=== PATIENT | male | born 1985 | race Caucasian/White ===

== ENCOUNTER 2024-05-10 09:03 | Outpatient (CLI) | payer OTHER, SELFPAY ==
--- NOTE | 2024-05-31 12:45 | WPDHOMESLEEP ---
Sleep Study - Home Unattended Date of Study: 05/10/24 Ordering Provider: Loni Molina, [employer] Interpreting Provider: Denise Sorensen, DO Home Sleep Study Type: Watch PAT Height: 1.78 m Weight: 113.398 kg Body Mass Index: 35.9 Neck Circumference (inches): 20.5 [place]: 4 Reason for Sleep Study Snoring Sleep History The patient is a 38-year-old male that had a sleep study ordered by his physician for evaluation of sleep apnea. The patient admits to snoring loudly, interruptions and breathing while asleep and trouble maintaining sleep. The patient admits to choking and gasping. The patient admits to having trouble breathing on they are back. He admits to morning headaches. He admits to having a dry or sore mouth/ throat in the morning. He denies nocturnal heartburn. He denies nocturia. The patient denies having trouble falling asleep. He denies having difficulty returning to sleep if he wakes up during the night. He denies hypnotic or sedative use. He denies feeling anxious about sleep. He denies sleep paralysis, cataplexy and hypnagogic / hypnopompic hallucinations. He admits to clenching or grinding his teeth. He denies having a restless feeling in his legs. He denies kicking or jerking his legs excessively. He does feel tired or fatigued during the day. He feels unrefreshed in the morning. He denies having urge to fall asleep during the day. He denies feeling drowsy while driving. He goes to bed at 9:00 p.m. on work days and at 11:00 p.m. on his days off. It takes him 15 minutes to fall asleep. He gets 7 hours of sleep on work days and 7 hours 45 minutes of sleep on the other days. His sleep is somewhat restorative on his days off. He denies taking any planned naps. He denies dream enactment behavior. He denies sleep walking. He consumes 1-2 cups of caffeinated beverage per day. He smokes less than 5 cigarettes per day. He has 2 glasses 7 alcoholic beverage 1-2 nights per week. He exercises 3-4 nights per week. Sleep Procedure The sleep study was completed using WatchPAT a technically adequate device with seven channels: peripheral arterial tone, actigraphy, body position, snore, respiratory movement, pulse oximetry, sleep staging, and heart rate. Prior to using the device, the patient received verbal and written instructions for its application and was provided with the help desk phone number for additional telephonic instruction with 24-hour availability of qualified personnel to answer questions. The study was scored using CMS guidelines. Sleep Architecture The total recording time is 7 hrs, 4 min. The total sleep time is 6 hrs, 12 min. Sleep latency is 19 minutes. REM latency is 81 minutes. The patient had 14 episodes of waking. Sleep architecture shows 10.4% deep sleep, 63.2% light sleep, and (as % Total Sleep Time) showed NREM (Light 63.2%; Deep 10.4%), and a 26.5% stage REM. The patient spent 65.3% of total sleep time in the supine position. Sleep efficiency was 87.74. Respiratory Analysis The overall AHI (pAHI 4%:) is 66.4. The central AHI is 3.7. The AHI was 66.1 in NREM and 67.1 in REM sleep. The AHI was 89.7 in Supine and 22.5 in Non-supine sleep. Percent of Roland Ling respirations is 0.0. Oximetry Data The oxygen desaturation index (ESTELA 4%:) is 64.4. The mean saturation is 94%, and the lowest saturation is 68%. Time spent with saturation < 88% is 12.0 minutes. Snoring Profile Snoring average intensity is 46 dB. The patient snored above 45 decibels for 190.2 minutes, 51.1% of sleep time. Cardiac Profile The average pulse rate is 71 beats per minutes. The lowest pulse rate is 55bpm. The highest pulse rate reported is 116 bpm. Atrial fibrillation was not detected. Premature beats occur <0.1 per minute. Assessment and Plan Assessment and Plan (1) RACHEL (obstructive sleep apnea): Code(s): G47.33 - Obstructive sleep apnea (adult) (pediatric) Status: Acute Assessment and Plan: The patient had an overall AHI of 66.4 with desaturation down to 68%. This is consistent with severe sleep apnea. I recommend that the patient have a CPAP Titration study with the use of a hypnotic to ensure we obtain enough sleep data and find an optimal pressure. Data The data obtained during this sleep study is adequate for interpretation. Certification This sleep study has been reviewed by a board certified sleep medicine physician.
[2024-06-01 13:26] VITALS: BMI 35.9
== END 2024-05-17 12:33 | disposition home or self-care (01) ==
PROVIDERS: Visit Provider Nurse Practitioner
DX: G47.33 Obstructive sleep apnea (adult) (pediatric) (principal); I10 Essential (primary) hypertension
CPT/HCPCS: 95800